=== PATIENT | male | born 1975 | race Caucasian/White ===

== ENCOUNTER 2022-03-24 19:14 | Emergency (ER) | payer BC, SELFPAY ==
[2022-03-24 19:25] VITALS: BP 141/85; PULSE 95; RESP 18; TEMP 36.9; O2SAT 97; BMI 38.9
--- NOTE | 2022-03-24 19:56 | HMH.EDUTC ---
[facility] [place] Impression: Viral syndrome Disposition: Home, Self-Care Condition on Discharge: Good Instructions: DI for Viral Syndrome, DI for Nausea -- Adult Additional Instructions: *Monitor Temp, Over the counter Motrin or Tylenol as directed/as needed Tylenol every 4 hours and Motrin every 6 hours (as long as your family doctor has told you that you can take it) for fever or pain. and straight to ER if unable to lower temp less than 101.0 after medication given *Warm salt water gargles may help to soothe the throat *Throat Lozenges *Warm fluids like tea with honey may help to soothe the throat *Sleep elevated *Humidifier/Vaporizer Follow up IMMEDIATELY for new or worsening symptoms or no Noticeable improvement over the next 48-72 hours. 911 for difficulty breathing or swallowing You were tested for today for COVID19 your test result should be back in the next 24-48 hours, you may check your results on the [facility] My Health Portal Make sure to take your Vitamins Vit. C Vit D and Zinc if you can take them Prescriptions: Ondansetron [Zofran 4mg ODT] 4 mg PO TIDP PRN #10 tab PRN Reason: Nausea Transmission Status: Pending to [id number] Referrals: Palmer Miner [Primary Care Provider] - As needed Forms: Work/School Release Time of Disposition: 19:59 Medical Decision Making - Ayush Inquiry Pt receiving controlled substance: No Ayush was queried for this patient: No Vital Signs: 03/24/22 19:25 Temperature 98.5 F Temperature Source Oral Pulse Rate [Right Brachial] 95 H Respiratory Rate 18 Blood Pressure [Right Arm] 141/85 H Blood Pressure Mean [Right Arm] 103 Blood Pressure Source [Right Arm] Automatic Cuff Blood Pressure Position [Right Arm] Sitting 02 Sat by Pulse Oximetry 97 Orders (Tests/Meds): ORDERS Category Date Time Status Covid-19 Nasal PCR ([facility]) Routine Lab 03/24/22 19:27 [place] [facility] [place] - General Stated complaint: covid test, MEJIA,diarrhea,body aches Time Seen by Provider: 03/24/22 19:56 Mode of Arrival: Ambulatory Source of Information: Patient Limitations: No Limitations Description of Symptoms (Recalled from Triage Doc. by RN): PATIENT C/O FEVER, HEADACHE, NAUSEA, BODY ACHES, AND CHILLS SINCE YESTERDAY HEENT Symptoms (Recalled from RN notes): Yes Resp Symptoms (Recalled from RN notes): No Skin Symptoms (Recalled from RN notes): No MS Symptoms (Recalled from RN notes): No Functional Status (Recalled from RN notes): WNL - History of Present Illness Provider Complaint: Patient states that he started feeling bad yesterday having chills, body aches, fever, and nausea States that he hasnt been around anyone with COVID that he is aware of but unsure and having symptoms - Related Data Previous Rx's Medication Instructions Recorded Ondansetron [Zofran 4mg ODT] 4 mg PO TIDP PRN #10 tab 03/24/22 Allergies Allergy/AdvReac Type Severity Reaction Status Date / Time No Known Allergies Allergy Verified 03/24/22 19:45 - Worker's Comp Is this a Worker's Comp case?: No [facility] History - Hepatitis A Screen Attestation statement:: This patient has been screened for Hepatitis A risk factors. I have reviewed the patient's past medical history: Yes - Social History Alcohol Intake: never Occupational Status: other ROS Obtained: Yes All systems reviewed & no additional complaints, Yes Systems reviewed as appropriate & no additional complaints - Constitutional Constitutional: Reports system reviewed and no additional complaints, except as docu, Reports body ache, Reports chills, Reports fatigue, Reports fever(s) - ENT Ears, Nose, Mouth, and Throat: Reports system reviewed and no additional complaints, except as docu - Cardiovascular Cardiovascular: Reports system reviewed and no additional complaints, except as docu - Respiratory Respiratory: Reports system reviewed and no additional complaints, except as docu - Gastrointestinal
[2022-03-24 20:16] VITALS: BP 141/85; PULSE 95; RESP 18; TEMP 36.9; O2SAT 97
== END 2022-03-24 20:22 | disposition home or self-care (01) ==
PROVIDERS: Emergency Provider Nurse Practitioner; PCP Pediatrics
DX: Z20.822 Contact with and (suspected) exposure to COVID-19 (principal); B34.9 Viral infection, unspecified
CPT/HCPCS: 99212; C9803; G0463; U0003; U0005

== ENCOUNTER 2022-07-06 12:27 | Emergency (ER) | payer BC, SELFPAY ==
[2022-07-06 12:35] VITALS: BP 137/96; PULSE 87; RESP 18; TEMP 36.8; O2SAT 97; BMI 35.6
--- NOTE | 2022-07-06 12:38 | XR_ITS ---
PROCEDURE INFORMATION: Exam: XR Lumbosacral Spine Exam date and time: 07/06/2022 12:47 PM Age: 46 years old Clinical indication: Patient HX: Chronic low back pain TECHNIQUE: Imaging protocol: Radiologic exam of the lumbosacral spine. Views: 2 or 3 views. COMPARISON: No relevant prior studies available. FINDINGS: Bones/joints: Lumbar spondylosis. Multilevel disc degeneration most pronounced at L3-L4 through L5-S1. Multilevel facet hypertrophy. Soft tissues: Unremarkable. IMPRESSION: Lumbar spondylosis with multilevel disc degeneration most pronounced at L3-L4 through L5-S1.
--- NOTE | 2022-07-06 12:38 | XR_ITS ---
PROCEDURE INFORMATION: Exam: XR Right Ankle Exam date and time: 07/06/2022 12:47 PM Age: 46 years old Clinical indication: Pain; Ankle; Right; Additional info: Rolled TECHNIQUE: Imaging protocol: Radiologic exam of the Right ankle. Views: 3 or more views. COMPARISON: No relevant prior studies available. FINDINGS: Bones/joints: Well corticated loose bodies probable accessory ossicles medial aspect of the ankle joint. Soft tissues: Mild soft tissue swelling superficial to the lateral malleolus. IMPRESSION: No evidence of acute osseous injury.
--- NOTE | 2022-07-06 12:38 | XR_ITS ---
PROCEDURE INFORMATION: Exam: XR Right Foot Exam date and time: 07/06/2022 12:47 PM Age: 46 years old Clinical indication: Pain; Foot; Right; Additional info: Rolled TECHNIQUE: Imaging protocol: Radiologic exam of the Right foot. Views: 3 or more views. COMPARISON: No relevant prior studies available. FINDINGS: Bones/joints: Spur formation posterior margin of the calcaneus at the site of attachment of the Achilles tendon. Soft tissues: Unremarkable IMPRESSION: No evidence of acute osseous injury.
--- NOTE | 2022-07-06 12:46 | PC.NURSE ---
pt to rad
--- NOTE | 2022-07-06 13:03 | PC.NURSE ---
Pt returned from rad.
--- NOTE | 2022-07-06 13:21 | HMH.EDGENADL ---
Discharge Plan Disposition Patient Disposition: Home, Self-Care Condition: Fair Prescriptions Prescriptions: New prednisone 20 mg tablet 60 mg PO DAILY 5 Days Qty: 15 0RF methocarbamol 750 mg tablet 750 mg PO Q6 PRN (Reason: Muscle Spasm) Qty: 30 0RF No Action ondansetron 4 MG tablet,disintegrating 4 mg PO TIDP PRN (Reason: Nausea) Qty: 10 0RF Referrals Follow up/Referrals: Palmer Miner [Primary Care Provider] - See instructions Clinical Impressions Clinical Impression: Sciatica Instructions Patient Instructions: DI for Sciatica Discharge ED Provider: Thomas Borges General Adult HPI General Chief complaint: PAIN Stated complaint: back and hip pain, no accident Time Seen by Provider: 07/06/22 13:00 Mode of Arrival: Ambulatory Source of Information: Patient Limitations: No Limitations Description of Symptoms (Recalled from ER Triage Doc. by RN): pt to ed c/o lower back oain that radiates downhis right leg. pt reports he also rolled his right ankle thursday and is still having pain. History of Present Illness HPI narrative: Patient is a 46-year-old male with a past medical history of disc herniation who presents with concern for right back and leg pain. He states that he tweaked his back a few days ago and is now experiencing low back pain that seems to radiate down to his foot. He says that it goes on the posterior aspect of his leg. He denies any weakness or difficulty ambulating. He says that it feels like [id number]. He says that it feels similar to his symptoms the last time when he had a herniated disc. He says he also rolled his ankle on Thursday and is having little bit of swelling and pain on the lateral aspect. Pain is worse with movement of the ankle. He says that his back pain is worse when he lies flat better when he gets up and moves around. Denies any bowel or bladder incontinence. Denies any saddle anesthesia. Related Data Previous Rx's Medication Instructions Recorded ondansetron 4 mg disintegrating 4 mg PO TIDP PRN Nausea #10 tabs 03/24/22 tablet methocarbamol 750 mg tablet 750 mg PO Q6 PRN Muscle Spasm #30 07/06/22 tabs prednisone 20 mg tablet 60 mg PO DAILY 5 days #15 tabs 07/06/22 Allergies Allergy/AdvReac Type Severity Reaction Status Date / Time No Known Allergies Allergy Verified 03/24/22 19:45 [facility] Social History Smoking Status: Never smoker alcohol intake: never current occupational status: other Travel in the last 8 weeks: None ROS Obtained: Yes All systems reviewed & no additional complaints except as documented A 14 point review of system was obtained and otherwise negative except per HPI Physical Exam General General appearance: alert and in no apparent distress Head Head exam: atraumatic, normocephalic and normal inspection Eye Eye exam: Present normal appearance, PERRL and EOMI ENT ENT exam: Present normal exam, normal oropharynx, mucous membranes moist, TM's normal bilaterally and normal external ear exam Neck Neck exam: Present normal inspection, full ROM and trachea midline; Absent meningismus or lymphadenopathy Chest Chest inspection: Present normal inspection and symmetric chest wall rise; Absent tenderness Respiratory Respiratory exam: Present normal lung sounds bilaterally; Absent respiratory distress Cardiovascular Cardiovascular exam: Present regular rate and normal rhythm; Absent JVD Abdominal Exam Abdominal exam: Present soft and normal bowel sounds; Absent distention, tenderness or guarding Extremities Exam Extremities exam: Present normal inspection, full ROM and normal capillary refill; Absent calf tenderness Expanded Lower Extremity Exam Right: Ankle exam: Present tenderness and swelling; Absent ecchymosis, deformity, dislocation or erythema Back Exam Back exam: Present normal inspection, paraspinal tenderness and straight leg raise (R); Absent tenderness or straight leg raise (L) Neurolo
[2022-07-06 14:00] VITALS: BP 135/82; PULSE 69; RESP 20; O2SAT 98
[2022-07-06 15:00] VITALS: BP 125/82; PULSE 83; RESP 16; TEMP 36.8; O2SAT 99
== END 2022-07-06 15:01 | disposition home or self-care (01) ==
PROVIDERS: Emergency Provider Student in an Organized Health Care Education/Training Program; PCP Pediatrics
DX: M54.16 Radiculopathy, lumbar region (principal); M25.551 Pain in right hip; M25.571 Pain in right ankle and joints of right foot; R11.0 Nausea; Z79.52 Long term (current) use of systemic steroids; Z79.899 Other long term (current) drug therapy
CPT/HCPCS: 72100; 73610; 73630; 99284

== ENCOUNTER 2023-02-24 17:12 | Emergency (ER) | payer BC, SELFPAY ==
[2023-02-24 17:13] VITALS: BP 142/84; PULSE 117; RESP 17; TEMP 36.9; O2SAT 97; BMI 35.6
--- NOTE | 2023-02-24 17:25 | HMH.EDGENADL ---
Discharge Plan Disposition Patient Disposition: Home, Self-Care Condition: Fair Prescriptions Prescriptions: New penicillin V potassium 500 mg tablet 500 mg PO BID 10 Days Qty: 20 0RF No Action ondansetron 4 MG tablet,disintegrating 4 mg PO TIDP PRN (Reason: Nausea) Qty: 10 0RF prednisone 20 mg tablet 60 mg PO DAILY 5 Days Qty: 15 0RF methocarbamol 750 mg tablet 750 mg PO Q6 PRN (Reason: Muscle Spasm) Qty: 30 0RF Referrals Follow up/Referrals: Mary Ann Judge [Primary Care Provider] - See instructions Clinical Impressions Clinical Impression: Acute streptococcal pharyngitis Stand Alone Forms Stand Alone Forms: Work/School Release Instructions Patient Instructions: DI for Strep Throat Print Language Print Language: Icelandic Discharge ED Provider: Jairo Hensley General Adult HPI General Chief complaint: Upper Respiratory Infection Stated complaint: sore throat,body aches,cough Time Seen by Provider: 02/24/23 17:25 History of Present Illness HPI narrative: The patient presents to the emergency department sore throat, body aches, and diaphoresis. complaint: Sore throat Onset (ago): day(s) (2) Location: mouth Quality: burning Relieving factors: none Exacerbating factors: none Related Data Previous Rx's Medication Instructions Recorded ondansetron 4 mg disintegrating 4 mg PO TIDP PRN Nausea #10 tabs 03/24/22 tablet methocarbamol 750 mg tablet 750 mg PO Q6 PRN Muscle Spasm #30 07/06/22 tabs prednisone 20 mg tablet 60 mg PO DAILY 5 days #15 tabs 07/06/22 penicillin V potassium 500 mg 500 mg PO BID 10 days #20 tabs 02/24/23 tablet Allergies Allergy/AdvReac Type Severity Reaction Status Date / Time No Known Allergies Allergy Verified 03/24/22 19:45 [facility] Disclaimer: The information contained in this section may have been updated after the patient was seen, as this information can be updated by other users. Social History Smoking Status: Current every day smoker alcohol intake: never current occupational status: other Travel in the last 8 weeks: None ROS Obtained: Yes Systems reviewed as appropriate & no additional complaints except as documented Constitutional Constitutional: Reports fatigue, Reports poor appetite and Reports malaise ENT Ears, Nose, Mouth, and Throat: Reports sore throat Endocrine Endocrine: Reports fatigue Physical Exam General General appearance: alert and in no apparent distress Eye Eye exam: Present EOMI ENT ENT exam: Present normal oropharynx (Exudates on bilateral tonsils without peritonsillar abscess) and mucous membranes dry Chest Chest inspection: Present normal inspection Respiratory Respiratory exam: Present normal lung sounds bilaterally Cardiovascular Cardiovascular exam: Present tachycardia Abdominal Exam Abdominal exam: Present soft Extremities Exam Extremities exam: Present normal inspection Neurological Exam Neurological exam: Present alert; Absent motor sensory deficit Psychiatric Psychiatric exam: Present normal affect and normal mood Medical Decision Making Ayush Inquiry Pt receiving controlled substance: No Vital Signs: 02/24/23 17:13 02/24/23 17:30 02/24/23 18:00 Temperature 98.4 F Temperature Source Oral Pulse Rate 119 H 119 H Pulse Rate [Left Radial] 117 H Respiratory Rate 17 Blood Pressure 135/77 158/88 H Blood Pressure [Right Arm] 142/84 H Blood Pressure Mean 96 103 Blood Pressure Mean [Right Arm] 103 Blood Pressure Source Blood Pressure Source [Right Arm] Automatic Cuff Blood Pressure Position Blood Pressure Position [Right Arm] Sitting 02 Sat by Pulse Oximetry 97 100 98 Oxygen Delivery Method 02/24/23 18:48 Temperature 98.9 F Temperature Source Oral Pulse Rate 115 H Pulse Rate [Left Radial] Respiratory Rate 18 Blood Pressure 155/88 H Blood Pressure [Right Arm] Blood Pressure Mean Bl
--- NOTE | 2023-02-24 17:27 | PC.NURSE ---
ED MD AT BEDSIDE
[2023-02-24 17:30] VITALS: BP 135/77; PULSE 119; O2SAT 100
[2023-02-24 17:42] LABS: Coronavirus 19, PCR Not Detected (NotDetected); Influenza A, PCR Not Detected (NotDetected); Influenza B, PCR Not Detected (NotDetected)
[2023-02-24 18:00] VITALS: BP 158/88; PULSE 119; O2SAT 98
[2023-02-24 18:01] LABS: Strep Scrn Group A (Rapid) Positive (Negative)
--- NOTE | 2023-02-24 18:31 | PC.NURSE ---
DR COLUNGA AT BEDSIDE TO UPDATE PT
[2023-02-24 18:48] VITALS: BP 155/88; PULSE 115; RESP 18; TEMP 37.2; O2SAT 99
== END 2023-02-24 18:50 | disposition home or self-care (01) ==
PROVIDERS: Emergency Provider Emergency Medicine; PCP Family Medicine
DX: J02.0 Streptococcal pharyngitis (principal); F17.200 Nicotine dependence, unspecified, uncomplicated
CPT/HCPCS: 87430; 87635; 87636; 96372; 99283; 99284; C9803; U0003; U0005